=== PATIENT | female | born 2000 | race Caucasian/White ===

== ENCOUNTER 2020-10-14 14:24 | Emergency (ER) | payer OTHER ==
[2020-10-14 14:40] VITALS: BMI 24.3
[2020-10-14 16:20] LABS: BASO % 0.3 % (0-2.0); HEMATOCRIT 29.8 % (32.4-45.2); LYMPH % 17.9 % (8-40); MCH 30.9 pg (25.7-33.7); MCHC 33.4 g/dl (32.0-36.0); MEAN CELL VOLUME 92.4 fl (80-96); MEAN PLT VOLUME 9.3 fl (7.5-11.1); MONO % 7.3 % (3.8-10.2); NEUT % 73.5 % (42.8-82.8); PLATELET COUNT 202 K/MM3 (134-434); RBC 3.23 M/mm3 (3.60-5.2); WHITE BLOOD COUNT 10.8 K/mm3 (4.0-10.0)
[2020-10-14 16:41] LABS: PH,URINE 7.5 (5.0-8.0); URINE APPEARANCE CLEAR; URINE BILIRUBIN NEGATIVE (NEGATIVE); URINE COLOR YELLOW; URINE GLUCOSE (UA) NEGATIVE (NEGATIVE); URINE KETONE NEGATIVE (NEGATIVE); URINE LEUK ESTERASE NEGATIVE (NEGATIVE); URINE NITRITE NEGATIVE (NEGATIVE); URINE PROTEIN NEGATIVE (NEGATIVE); URINE UROBILINOGEN 0.2 mg/dL (0.2-1.0)
[2020-10-14 16:41] LABS: CALCIUM 8.5 mg/dL (8.5-10.1)
[2020-10-14 16:42] LABS: ALBUMIN 2.4 g/dl (3.4-5.0); BLOOD UREA NITROGEN 6.8 mg/dL (7-18)
[2020-10-14 16:45] LABS: CREATININE 0.4 mg/dL (0.55-1.3)
[2020-10-14 16:47] LABS: BILIRUBIN,TOTAL 0.2 mg/dL (0.2-1); TOT PROT 5.9 g/dl (6.4-8.2)
[2020-10-14 18:36] VITALS: BP 115/63; PULSE 76; TEMP 98.4
== END 2020-10-14 20:20 | disposition home or self-care (01) ==
LOC: JER 14:24
DX: R10.9 Unspecified abdominal pain (principal); R19.7 Diarrhea, unspecified; R11.10 Vomiting, unspecified
CPT/HCPCS: 36415; 76705-TC; 76801-TC; 76815; 76817-TC; 80053; 81003; 85025; 87086; 99285-25